=== PATIENT | female | born 1995 | race Caucasian/White ===

== ENCOUNTER 2018-01-16 10:25 | Emergency (ER) | payer OTHER ==
[2018-01-16 10:37] VITALS: BP 128/66; PULSE 102; TEMP 99; BMI 19.0
[2018-01-16] MEDS ORDERED: DEXAMETHASONE LIQUID 0.5 MG/5 ML 240 ML BULK BOTTLE PO ONE (11:05)
[2018-01-16] MEDS ORDERED: DEXAMETHASONE SOD PHOSPHATE 10 MG/1 ML VIAL ONE (11:10)
[2018-01-16] MEDS ORDERED: ALBUTEROL SO4 2.5/IPRATROPIUM 0.5 INH SOL 3 ML VIAL.NEB. NEB ONE (11:10)
--- NOTE | 2018-01-16 11:12 | PDOC ---
History of Present Illness - General Chief Complaint: Nausea/Vomiting Stated Complaint: SOB, VOMITING Time Seen by Provider: 01/16/18 10:50 - History of Present Illness Initial Comments: 22-year-old female which shortness of breath 1 day. She states she has a past medical history significant for asthma but does not take home albuterol. No other associated symptoms. 01/16/18 11:09 Past History - Past Medical History Allergies/Adverse Reactions: Allergies Allergy/AdvReac Type Severity Reaction Status Date / Time metoclopramide [From Reglan] Allergy Verified 01/16/18 10:32 Home Medications: Ambulatory Orders Albuterol Sulfate Inhaler - [Ventolin HFA Inhaler -] 1 - 2 inh PO Q4H #1 inhaler 01/16/18 Cetirizine HCl [Zyrtec Rapidly Dissolving Tab -] 10 mg PO DAILY #30 tab Asthma: Yes COPD: No - Suicide/Smoking/Psychosocial Hx Smoking History: Never smoked Have you smoked in the past 12 months: No Information on smoking cessation initiated: No Hx Alcohol Use: No Drug/Substance Use Hx: No Substance Use Type: None Review of Systems - Review of Systems Comments:: GENERAL/CONSTITUTIONAL: [No fever or chills. No weakness. No weight change.] HEAD, EYES, EARS, NOSE AND THROAT: [No change in vision. No ear pain or discharge. No sore throat.] CARDIOVASCULAR: [No chest pain or shortness of breath.] RESPIRATORY: [No cough, + wheezing, no hemoptysis.] GASTROINTESTINAL: [No nausea, vomiting, diarrhea or constipation. No rectal bleeding.] GENITOURINARY: [No dysuria, frequency, or change in urination.] MUSCULOSKELETAL: [No joint or muscle swelling or pain. No neck or back pain.] SKIN AND BREASTS: [No rash or easy bruising.] NEUROLOGIC: [No headache, vertigo, loss of consciousness, or loss of sensation.] PSYCHIATRIC: [No depression or anxiety.] ENDOCRINE: [No increased thirst. No abnormal weight change.] HEMATOLOGIC/LYMPHATIC: [No anemia, easy bleeding, or history of blood clots.] ALLERGIC/IMMUNOLOGIC: [No hives or skin allergy. No latex allergy.] 01/16/18 11:10 *Physical Exam - Vital Signs Last Vital Signs Temp Pulse Resp BP Pulse Ox 99.0 F 102 H 22 128/66 100 01/16/18 10:33 01/16/18 10:33 01/16/18 10:33 01/16/18 10:33 01/16/18 10:33 - Physical Exam Comments: GENERAL: [The patient is awake, alert, and fully oriented, in no acute distress. ] HEAD: [Normal with no signs of trauma.] EYES: [Pupils equal, round and reactive to light, extraocular movements intact, sclera anicteric, conjunctiva clear.] ENT: [Ears normal, nares patent, oropharynx injected without exudates. Moist mucous membranes.] NECK: [Normal range of motion, supple without lymphadenopathy, JVD, or masses.] LUNGS: [Diffuse wheezes no rhonchi] HEART: [Regular rate and rhythm, normal S1 and S2 without murmur, rub or gallop. ] ABDOMEN: [Soft, nontender, normoactive bowel sounds. No guarding, no rebound. No masses.] EXTREMITIES: [Normal range of motion, no edema. No clubbing or cyanosis. No cords, erythema, or tenderness.] NEUROLOGICAL: [Cranial nerves II through XII grossly intact. Normal speech, normal gait.] PSYCH: [Normal mood, normal affect.] SKIN: [Warm, Dry, normal turgor, no rashes or lesions noted.] 01/16/18 11:10 Moderate Sedation - Procedure Monitoring Vital Signs: Vital Signs Temp Pulse Resp BP Pulse Ox 99.0 F 102 H 22 128/66 100 01/16/18 10:33 01/16/18 10:33 01/16/18 10:33 01/16/18 10:33 01/16/18 10:33 Medical Decision Making - Medical Decision Making Exacerbation of asthma DuoNeb Decadron she does feel warm temperatures 99. Her throat was mildly injected also get a rapid strep test. 01/16/18 11:11 01/16/18 11:51 Cleared up nicely after the first DuoNeb treatment. This is most likely an exacerbation of seasonal asthma. I will call her in an antihistamine as well as albuterol. *DC/Admit/Observation/Transfer Diagnosis at time of Disposition: Asthma attack - Discharge Dispostion Disposition: HOME Condition at time of disposition: Improved Decision to Admit order: No - Referrals Referrals: Nazario Hargrove MD [Primary Care Provider] - - Patient Instructions Printed Discharge Instructions: Asthma -- Adult, DI for Asthma -- Adult Additional Instructions: I have called when an antihistamine for ALLERGIES as well as an albuterol pump failure asthma. Use them as prescribed. Return to the emergency room if symptoms return. Follow up with your primary care physician in one to 2 days - Post Discharge Activity
[2018-01-16] MEDS ORDERED: ALBUTEROL SO4 2.5/IPRATROPIUM 0.5 INH SOL 3 ML VIAL.NEB. NEB SCH (11:15)
== END 2018-01-16 12:02 | disposition home or self-care (01) ==
LOC: JERFT 10:25
PROC: 3E0F7GC Introduction of Other Therapeutic Substance into Respiratory Tract, Via Natural or Artificial Opening (ICD-10-PCS; principal; 2018-01-16)
DX: J45.901 Unspecified asthma with (acute) exacerbation (principal)
CPT/HCPCS: 84703; 87070; 87430; 94640; 99281-25